=== PATIENT | male | born 1980 | race American Indian/Alaskan Native ===

== ENCOUNTER 2021-05-05 05:28 | Day surgery (SDC) | payer MEDICAID ==
[2021-04-27 14:14] LABS: BASOPHILS % (AUTO) 0.5 % (0-1); EOSINOPHILS # (AUTO) 0.1 X10'3 (0-0.9); EOSINOPHILS % (AUTO) 1.3 % (0-6); LYMPHOCYTES # (AUTO) 2.1 X10'3 (1.1-4.8); LYMPHOCYTES % (AUTO) 24.4 % (21-51); MEAN CORPUSCULAR HEMOGLOBIN 28.6 PG (27.0-31.0); MEAN CORPUSCULAR HGB CONC 33.2 g/dL (33.0-36.5); MEAN CORPUSCULAR VOLUME 86.1 FL (78-98); MEAN PLATELET VOLUME 8.2 FL (7.4-10.4); MONOCYTES # (AUTO) 0.7 X10'3 (0-0.9); NEUTROPHILS # (AUTO) 5.8 X10'3 (1.8-7.7); NEUTROPHILS % (AUTO) 65.8 % (42-75); PRE OP HEMOGLOBIN 14.6 g/dL (14.0-17.9); PRE OP PLATELET COUNT 274 X10'3 (140-440); RED BLOOD COUNT 5.11 X10'6 (4.70-6.10); RED CELL DISTRIBUTION WIDTH 14.4 % (11.5-14.5)
[2021-04-27 14:26] LABS: ALBUMIN 3.8 G/DL (3.4-5.0); ALKALINE PHOSPHATASE 97 IU/L (46-116); BLOOD UREA NITROGEN 16 MG/DL (7-18); BUN/CREATININE RATIO 13.4 (5.4-32.0); CALCIUM 8.9 MG/DL (8.5-10.1); CHLORIDE 109 MMOL/L (99-107); CREATININE 1.19 MG/DL (0.60-1.10); PRE OP ALT 30 U/L (30-65); PRE OP ANION GAP 7 (8-16); PRE OP AST 12 U/L (10-37); PRE OP BILIRUB, TOTAL 0.4 MG/DL (0.0-1.0); PRE OP GLUCOSE 102 MG/DL (70-104); PRE OP POTASSIUM 4.2 MMOL/L (3.4-5.1); PRE OP SODIUM 145 MMOL/L (135-145); TOTAL CARBON DIOXIDE 29.2 MMOL/L (24-32); TOTAL PROTEIN 7.6 G/DL (6.4-8.2); eGFR 67 ML/MIN
[2021-05-05] VITALS (12 sets, daily range): BP systolic 135–185; BP diastolic 80–114
[~2021-05-05] VITALS: Ht 188 cm; Wt 127.9 kg
[~2021-05-05 05:28] MED LIST: ringers solution, lacted 1,000 ML IV SCH
[2021-05-05] MEDS ORDERED: vancomycin 1,500 MG in NS 300ml IV soln IV ONE (05:30)
[2021-05-05] MEDS ORDERED: clindamycin-Cleocin 900mg/D5W 50 ML IV ONE (05:30)
[2021-05-05] MEDS ORDERED: famotidine 20mg tablet PO ONE (05:30)
[2021-05-05] MEDS ORDERED: DOCUMENT DATE & TIME OF BETA-BLOCKER PO ONE (05:30)
[2021-05-05] MEDS ORDERED: BUPIVAcaine/PF 2.5mg/ml (0.25%) 10ml vial ONE (06:46)
[2021-05-05] MEDS ORDERED: triamcinolone acetonide 40mg/ml inj ONE (06:47)
[2021-05-05] MEDS ORDERED: METO-395 PO (06:51)
[2021-05-05] MEDS ORDERED: METF-437 PO (06:51)
[2021-05-05] MEDS ORDERED: NIFE90TA61 PO (06:52)
[2021-05-05] MEDS ORDERED: LOSA25TA96 PO (06:53)
[2021-05-05] MEDS ORDERED: cloNIDine hcl/PF 100mcg/ml inj ONE (07:08)
[2021-05-05] MEDS ORDERED: sevoflurane 250ml liquid IH ONE (07:18)
[2021-05-05] MEDS ORDERED: ketorolac trometh. 30mg/ml inj. ONE (07:18)
[2021-05-05] MEDS ORDERED: MIDAZolam 1 MG/ML 5ML VIAL ONE (07:39)
[2021-05-05] MEDS ORDERED: fentaNYL/PF 50MCG/1 ML 2ML syringe ONE (07:40)
[2021-05-05] MEDS ORDERED: albuterol 60 PUFF/8GM Inhaler IH ONE (07:41)
[2021-05-05] MEDS ORDERED: dexamethasone sod phosphate 4mg/ml inj. ONE (07:46)
[2021-05-05] MEDS ORDERED: LIDOcaine 2% (20mg/ml) 5ml vial ONE (07:46)
[2021-05-05] MEDS ORDERED: LIDOcaine 1%/PF 5ML 10 MG/ML VIAL ONE (07:46)
[2021-05-05] MEDS ORDERED: ROPIVAcaine 0.5% (5mg/ml) 30ml vial ONE (07:46)
[2021-05-05] MEDS ORDERED: propofol inj 20 ML IV ONE ×2 (07:46)
[2021-05-05] MEDS ORDERED: ondansetron/PF 4mg/2ml inj ONE (08:04)
[2021-05-05] MEDS ORDERED: labetalol 20mg/4ml (5mg/ml) syringe IV PRN (08:05)
[2021-05-05] MEDS ORDERED: ringers solution, lacted 1,000 ML IV SCH (08:05)
[2021-05-05] MEDS ORDERED: meperidine/PF 25mg/ml syringe IV PRN ×3 (08:05)
[2021-05-05] MEDS ORDERED: hydrALAZINE 20mg/ml inj. IV PRN (08:05)
[2021-05-05] MEDS ORDERED: acetaminophen 1,000mg/100ml IV 100 ML IV PRN (08:05)
[2021-05-05] MEDS ORDERED: morphine 4 MG/ML inj SYRINge IV PRN (08:05)
[2021-05-05] MEDS ORDERED: ondansetron/PF 4mg/2ml inj IV PRN (08:05)
[2021-05-05] MEDS ORDERED: morphine 2 MG/ML inj. syringe IV PRN (08:05)
[2021-05-05] MEDS ORDERED: proCHLORperazine 10 MG/2 ml inj IV PRN (08:05)
[2021-05-05] MEDS ORDERED: morphine 4 MG/ML inj SYRINge ONE (09:55)
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
[2021-05-05] MEDS ORDERED: metoprolol succinate 25mg (24-HOUR) SR. Tablet PO STA (11:23)
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
--- NOTE | 2021-05-05 11:40 | NUR ---
BP in 160's when Dr. Fong came by. He said give metoprolol if arrives then discharge home, he is not concerned with diastolic.
--- NOTE | 2021-05-05 11:45 | NUR ---
Patient is stating pain 4/10 in right calf. morphine given. bp 172/114 metoprolol given.
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
== END 2021-05-05 12:10 | disposition home or self-care (01) ==
LOC: PAS 05:28
PROVIDERS: ATTEND Orthopaedic Surgery
DX: S83.241A Other tear of medial meniscus, current injury, right knee, initial encounter (principal); S83.281A Other tear of lateral meniscus, current injury, right knee, initial encounter; M94.261 Chondromalacia, right knee; E78.5 Hyperlipidemia, unspecified; I10 Essential (primary) hypertension; M17.0 Bilateral primary osteoarthritis of knee; G89.18 Other acute postprocedural pain; E11.59 Type 2 diabetes mellitus with other circulatory complications; E66.01 Morbid (severe) obesity due to excess calories; Z68.38 Body mass index [BMI] 38.0-38.9, adult; Z88.1 Allergy status to other antibiotic agents; Z20.822 Contact with and (suspected) exposure to COVID-19; Z79.899 Other long term (current) drug therapy; Z98.890 Other specified postprocedural states; Z98.52 Vasectomy status; Z79.84 Long term (current) use of oral hypoglycemic drugs; X58.XXXA Exposure to other specified factors, initial encounter; Y93.89 Activity, other specified; Y92.89 Other specified places as the place of occurrence of the external cause; Y99.8 Other external cause status
CPT/HCPCS: 27418; 29873; 29880; 36415; 64447; 76942; 80053; 82948; 85025; C1713; J0735; J1100; J1885; J2001; J2250; J2270; J2405; J2704; J3010; J3301; J3370; J3490; J7040; L1832; U0003; U0005; Z7506; Z7508; Z7512; A4215; A4618; A6250; A6258; A6449; A6455; A7000; J2795; J7120

== ENCOUNTER 2021-09-01 13:58 | Outpatient (CLI) | payer MEDICAID ==
[~2021-09-01 13:58] MED LIST changes: +LOSA25TA96 PO; +METF-437 PO; +METO-395 PO; +NIFE90TA61 PO; -ringers solution, lacted 1,000 ML IV SCH
[2021-09-01 15:40] LABS: BASOPHILS % (AUTO) 0.6 % (0-1); EOSINOPHILS # (AUTO) 0.2 X10'3 (0-0.9); EOSINOPHILS % (AUTO) 2.4 % (0-6); LYMPHOCYTES # (AUTO) 2.1 X10'3 (1.1-4.8); LYMPHOCYTES % (AUTO) 27.1 % (21-51); MEAN CORPUSCULAR HEMOGLOBIN 27.9 PG (27.0-31.0); MEAN CORPUSCULAR HGB CONC 33.9 g/dL (33.0-36.5); MEAN CORPUSCULAR VOLUME 82.2 FL (78-98); MEAN PLATELET VOLUME 8.4 FL (7.4-10.4); MONOCYTES # (AUTO) 0.7 X10'3 (0-0.9); MONOCYTES % (AUTO) 9.3 % (2-12); NEUTROPHILS # (AUTO) 4.7 X10'3 (1.8-7.7); NEUTROPHILS % (AUTO) 60.6 % (42-75); PRE OP HEMATOCRIT 43.1 % (42.0-52.0); PRE OP HEMOGLOBIN 14.6 g/dL (14.0-17.9); PRE OP PLATELET COUNT 266 X10'3 (140-440); RED BLOOD COUNT 5.25 X10'6 (4.70-6.10); RED CELL DISTRIBUTION WIDTH 15.5 % (11.5-14.5)
[2021-09-01 15:52] LABS: ALBUMIN 3.9 G/DL (3.4-5.0); ALBUMIN/GLOBULIN RATIO 1.1 (1.1-1.5); ALKALINE PHOSPHATASE 84 IU/L (46-116); BLOOD UREA NITROGEN 17 MG/DL (7-18); BUN/CREATININE RATIO 16.5 (5.4-32.0); CHLORIDE 103 MMOL/L (99-107); CREATININE 1.03 MG/DL (0.60-1.10); PRE OP ALT 41 U/L (30-65); PRE OP ANION GAP 8 (8-16); PRE OP AST 13 U/L (10-37); PRE OP BILIRUB, TOTAL 0.4 MG/DL (0.0-1.0); PRE OP GLUCOSE 157 MG/DL (70-104); PRE OP POTASSIUM 3.7 MMOL/L (3.4-5.1); PRE OP SODIUM 140 MMOL/L (135-145); TOTAL CARBON DIOXIDE 28.9 MMOL/L (24-32); TOTAL PROTEIN 7.6 G/DL (6.4-8.2); eGFR 79 ML/MIN
== END 2021-09-01 23:59 | disposition home or self-care (01) ==
LOC: PRE-OP 13:58 → EDSTATUS 09-08 07:30
PROVIDERS: ATTEND Orthopaedic Surgery
DX: Z01.818 Encounter for other preprocedural examination (principal); S82.02 Longitudinal fracture of patella; M22.41 Chondromalacia patellae, right knee; M22.42 Chondromalacia patellae, left knee; E11.59 Type 2 diabetes mellitus with other circulatory complications; M54.50 Low back pain, unspecified; E78.5 Hyperlipidemia, unspecified; I10 Essential (primary) hypertension; E66.8 Other obesity; M17.0 Bilateral primary osteoarthritis of knee; M22.8X1 Other disorders of patella, right knee; M22.8X2 Other disorders of patella, left knee; X58.XXXD Exposure to other specified factors, subsequent encounter
CPT/HCPCS: 36415; 80053; 85025; U0003; U0005